=== PATIENT | female | born 1955 | race Two or more races ===

== ENCOUNTER 2019-12-10 14:25 | Emergency (ER) | payer SELFPAY ==
[~2019-12-10] VITALS: Ht 157.5 cm; Wt 75.3 kg
[2019-12-10 14:34] VITALS: BP 155/83
[2019-12-10] MEDS ORDERED: Methocarbamol 750mg tab ORAL ONE (15:00)
[2019-12-10] MEDS ORDERED: Ketorolac 30mg Inj IM ONE (15:00)
--- NOTE | 2019-12-10 16:17 | Emergency Room Report ---
History of Present Illness General Chief Complaint: Neck Pain Source: Patient Present Illness HPI 64-year-old female with a history here complaining of left-sided neck pain that radiates to shoulder and head as well as radiates to chest. Denies any chest pain chest pain radiation. Denies any palpitation, headache and dizziness. Complains of left-sided eye itchiness and some periorbital pain denies any dizziness, nausea vomiting, blurry vision. Reports that she has been feeling this way since the passing of her brother 4 months ago and suffers from anxiety however denies suicidal homicidal ideation. 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 Has not taken medication for symptom relief. No bony tenderness noted. Denies any tingling or numbness. Denies abdominal pain, nausea vomiting diarrhea. Daughter is on the phone is requesting cardiac work-up and also wants her mother to be checked for general checkup. It was explained to her that patient is to follow-up with primary doctor in this regard. Allergies: Coded Allergies: CODEINE (Verified Allergy, Unknown, 12/10/19) DIPHENHYDRAMINE (Verified Allergy, Unknown, 12/10/19) MORPHINE (Verified Allergy, Unknown, 12/10/19) Uncoded Allergies: PENICILLIN (Allergy, Unknown, 12/10/19) COVID-19 Screening Contact w/high risk pt: No Recent Travel to affected area: No Experienced COVID-19 symptoms?: No COVID-19 Testing performed SNAILER: No Patient History Past Medical History: see triage record Past Surgical History: none Pertinent Family History: none Now: No Immunizations: UTD Reviewed Nursing Documentation: PMH: Agreed; PSxH: Agreed Nursing Documentation-PM Past Medical History: No Stated History Review of Systems All Other Systems: negative except mentioned in HPI Physical Exam Vital Signs Date Time Temp Pulse Resp B/P (MAP) Pulse Ox O2 Delivery O2 Flow Rate FiO2 12/10/19 14:34 97.9 75 19 155/83 (107) 96 Room Air Sp02 EP Interpretation: reviewed, normal General Appearance: no apparent distress, alert, GCS 15, non-toxic Head: normocephalic, atraumatic Eyes: bilateral eye normal inspection, bilateral eye PERRL ENT: hearing grossly normal, normal pharynx, no angioedema, normal voice Neck: full range of motion, supple/symm/no masses Respiratory: chest non-tender, lungs clear, normal breath sounds, no rhonchi, speaking full sentences Cardiovascular #1: regular rate, rhythm, no edema, no gallop, no JVD, no murmur , no rub Cardiovascular #2: 2+ carotid (R), 2+ carotid (L), 2+ radial (R), 2+ radial (L) , 2+ dorsalis pedis (R), 2+ dorsalis pedis (L) Gastrointestinal: non tender, soft Genitourinary: no CVA tenderness Musculoskeletal: back normal, no calf tenderness Neurologic: alert, oriented Psychiatric: judgement/insight normal, memory normal, mood/affect normal, no suicidal/homicidal ideation Skin: no rash Lymphatic: no adenopathy Medical Decision Making PA Attestation All my diagnosis and treatment plans were reviewed ad discussed with my supervising physician Dr. Love Diagnostic Impression: Primary Impression: Cervical strain Additional Impressions: Anxiety Tension headache ER Course 64-year-old female with a history here complaining of left-sided neck pain that radiates to shoulder and head as well as radiates to chest. Denies any chest pain chest pain radiation. Denies any palpitation, headache and dizziness. Complains of left-sided eye itchiness and some periorbital pain denies any dizziness, nausea vomiting, blurry vision. Reports that she has been feeling this way since the passing of her brother 4 months ago and suffers from anxiety however denies suicidal homicidal ideation. 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 Has not taken medication for symptom relief. No bony tenderness noted. Denies any tingling or numbness. Denies abdominal pain, nausea vomiting diarrhea. Daughter is on the phone is requesting cardiac work-up and also wants her mother to be checked for general checkup. It was explained to her that patient is to follow-up with primary doctor in this regard. Ddx considered but are not limited to: Migraine headache with aura, migraine headache without aura, tension headache, cluster headache, TBI, subarachnoid hemorrhage, cervical strain versus strain Vital signs: are WNL, pt. is afebrile H&PE are most consistent with: Cervical strain, tension headache, anxiety ORDERS: C-spine x-ray, chest x-ray, EKG Robaxin, Motrin, lidocaine patch, Excedrin ER intervention: Toradol, Robaxin, lidocaine patch DISCHARGE: At this time pt. is stable for d/c to home. Will provide printed patient care instructions, and any necessary prescriptions. Care plan and follow up instructions have been discussed with the patient prior to discharge. Patient to follow primary doctor, at this time no further cardiac work-up needed as patient has neck pain radiating to chest posterior shoulders lifts heavy objects. Patient to follow primary doctor, if worsening symptoms return to the emergency room EKG Diagnostic Results Rate: normal Rhythm: NSR ST Segments: no acute changes Other Impression No acute ST changes Chest X-Ray Diagnostic Results Chest X-Ray Diagnostic Results : Chest X-Ray Ordered: Yes # of Views/Limited/Complete: 1 View Indication: Other EP Interpretation: Yes PA Xray: Interpretation reviewed, by supervising MD, and agrees with findings. Interpretation: no consolidation, no effusion, no pneumothorax Impression: No acute disease Electronically Signed by: Brody Morillo PA-C Other X-Ray Diagnostic Results Other X-Ray Diagnostic Results : X-Ray ordered: C-spine x-ray # of Views/Limited Vs Complete: 3 View Indication: Pain EP Interpretation: Yes PA Xray: Interpretation reviewed, by supervising MD, and agrees with findings. Interpretation: no dislocation, no soft tissue swelling, no fractures Impression: No acute disease Electronically Signed by: Brody Morillo PA-C Last Vital Signs Date Time Temp Pulse Resp B/P (MAP) Pulse Ox O2 Delivery O2 Flow Rate FiO2 12/10/19 14:34 97.9 75 19 155/83 96 Room Air Disposition: HOME, SELF-CARE Condition: Stable Scripts Lidocaine Patch* (Lidoderm Patch*) 1 Each Adh..patch 1 PATCH TOPIC DAILY, #30 PATCH Patch(es) may remain in place for up to 12 hours in any 24-hour period. Prov: JonathonelimoghavamiJadynal PA 12/09/20 Aspirin/Acetaminophen/Caffeine (EXCEDRIN EXTRA STRENGTH CAPLET) 1 Each Tablet 1 EACH PO BID, #30 TAB Prov: YiselmoghaJadyn georgesal PA 30/20 Ibuprofen* (MOTRIN*) 600 Mg Tablet 600 MG ORAL Q6H PRN for For Pain, #30 TAB 0 Refills Prov: JonathonelimoghaJadyn georegsal PA 30/20 Methocarbamol* (ROBAXIN-500*) 500 Mg Tablet 500 MG ORAL TID PRN for For Pain, #15 TAB 0 Refills Prov: Brody Nolan 12/10/19 Referrals: NOT CHOSEN IPA/MD,REFERRING (PCP) Patient Instructions: Cervical Strain and Sprain With Rehab-SportsMed, Generalized Anxiety Disorder, Tension Headache, [id number] Additional Instructions: Take medication as directed, follow-up with your primary care provider, avoid strenuous physical activity, if worsening symptoms return to the emergency room. Brody Nolan December 10, 2019 16:17
[2019-12-10] MEDS ORDERED: ROBAXIN-500MG ORAL (16:18)
[2019-12-10] MEDS ORDERED: IBUPROFEN600 M1 ORAL (16:18)
[2019-12-10] MEDS ORDERED: EXCEDRIN EXTRA1 EAC1 PO (16:18)
[2019-12-10] MEDS ORDERED: LIDODERM700 M1 TOPIC (16:18)
--- NOTE | 2019-12-10 16:28 | Diagnostic Imaging Report ---
EXAM: XR Cervical Spine, 4 or 5 Views CLINICAL HISTORY: PAIN TECHNIQUE: Frontal, lateral and oblique views of the cervical spine. COMPARISON: None FINDINGS: Bones: No vertebral body height loss. No subluxation. Straightening of the normal cervical lordosis. Degenerative changes of the spine. Osteopenia. Soft tissues: No acute finding. IMPRESSION: No acute abnormality.
--- NOTE | 2019-12-10 16:29 | Diagnostic Imaging Report ---
EXAM: XR Chest, 1 View CLINICAL HISTORY: PAIN TECHNIQUE: Frontal view of the chest. COMPARISON: None FINDINGS: Hardware: None. Lungs/pleura: Normal. No focal consolidation. No pleural effusion or pneumothorax. Heart/mediastinum: Normal. No cardiomegaly. Soft tissues: Unremarkable. Bones: No acute fracture. Degenerative changes of the spine. Upper abdomen: Normal. IMPRESSION: No acute disease identified.
[2019-12-10 16:32] VITALS: BP 145/84
== END 2019-12-10 16:32 | disposition home or self-care (01) ==
LOC: EMR 15:11
DX: S16.1XXA Strain of muscle, fascia and tendon at neck level, initial encounter (principal); F41.9 Anxiety disorder, unspecified; G44.201 Tension-type headache, unspecified, intractable; Z88.6 Allergy status to analgesic agent; Z88.0 Allergy status to penicillin; X58.XXXA Exposure to other specified factors, initial encounter; R07.9 Chest pain, unspecified
CPT/HCPCS: 71045; 72040; 93005; 96372; 99284; J1885

== ENCOUNTER 2020-08-28 18:43 | Emergency (ER) | payer SELFPAY ==
[~2020-08-28] VITALS: Ht 157.5 cm; Wt 74.8 kg
[~2020-08-28 18:43] MED LIST: EXCEDRIN EXTRA1 EAC1 PO; IBUPROFEN600 M1 ORAL; LIDODERM700 M1 TOPIC; ROBAXIN-500MG ORAL
[2020-08-28] MEDS ORDERED: Methocarbamol 500mg tab ORAL ONE (19:15)
[2020-08-28] MEDS ORDERED: Acetaminophen 500mg (ES) tab ORAL ONE (19:15)
[2020-08-28 19:20] VITALS: BP 155/91
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
[2020-08-28] MEDS ORDERED: IBUPROFEN600 M1 ORAL ×4 (19:37→19:47)
[2020-08-28] MEDS ORDERED: LIDODERM700 M1 TOPIC ×3 (19:37→19:47)
[2020-08-28] MEDS ORDERED: ROBAXIN-750750 MG PO ×3 (19:37→19:47)
[2020-08-28] MEDS ORDERED: TYLENOL EXTRA500 MG ORAL (19:51)
[2020-08-28 19:55] VITALS: BP 135/95
--- NOTE | 2020-08-28 20:07 | NUR ---
ER DISCHARGE NOTE: Patient is cleared to be discharged per ERMD, pt is aox4, on room air, with stable vital signs. pt was given dc and prescription instructions, pt was able to verbalize understanding, pt id bandremoved. pt is able to ambulate with steady gait. pt took all belongings. pt left in a private car.
== END 2020-08-28 19:55 | disposition home or self-care (01) ==
LOC: EMR 19:00
DX: S16.1XXA Strain of muscle, fascia and tendon at neck level, initial encounter (principal); S39.012A Strain of muscle, fascia and tendon of lower back, initial encounter; V43.52XA Car driver injured in collision with other type car in traffic accident, initial encounter; Y92.410 Unspecified street and highway as the place of occurrence of the external cause; Z88.6 Allergy status to analgesic agent; Z88.0 Allergy status to penicillin
CPT/HCPCS: 99282